=== PATIENT | male | born 2005 | race Caucasian/White ===

== ENCOUNTER 2025-08-14 13:13 | Emergency (ER) | payer OTHER, SELFPAY ==
[2025-08-14 13:14] VITALS: BP 124/78; PULSE 89; RESP 18; TEMP 35.8; O2SAT 100; BMI 30.5
--- NOTE | 2025-08-14 13:24 | EX.ED.UPPERE ---
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 He states that he now has a foreign body sensation in his hand. He thinks a splinter approximately an inch and a half long. In his hand. He sustained a left small laceration to the thenar eminence of his right hand. He denies other injuries. He is unsure of his last tetanus immunization but states that it has been over 10 years ago. He presents for splinter removal. PFSH PFSH Home Medications ?Medication ?Instructions ?Recorded ?Last Taken ?Type amoxicillin 875 mg-potassium 1 tab PO BID #14 tabs 08/14/25 Unknown Rx clavulanate 125 mg tablet hydrocodone-acetaminophen 5-325mg 1 tab PO Q6H PRN pain 3 days #12 08/14/25 Unknown Rx 5mg-325mg tabs Allergy/AdvReac Type Severity Reaction Status Date / Time No Known Allergies Allergy Verified 08/14/25 13:14 Social History Smoking Status: Never smoker ROS ROS ED ROS Narrative Review of systems is positive for splinter/foreign body, wooden in palm of right hand. EXAM Physical Exam Narrative Exam Narrative: GCS 15. ABCs intact. Inspection of the right hand does show very superficial laceration in the thenar eminence of his right hand. He is able to oppose his thumb. There is a palpable foreign body that is linear that is more distal to the wound. No active bleeding. Const Vital Signs: 08/14/25 13:14 08/14/25 13:19 Temperature 96.5 F L Temperature Source Temporal Pulse Rate 89 Respiratory Rate 18 Respiratory Effort Normal Non-Labored Respiratory Pattern Normal Blood Pressure 124/78 H Blood Pressure Mean 93 Pulse Ox 100 Oxygen Delivery Method Room Air MDM MDM MDM Narrative Medical decision making narrative: No feel differential diagnosis is applicable in this case is a foreign body in the soft tissue. His Tdap immunization was updated. I will obtain x-rays of the right hand to show the location of this probable radiopaque foreign body. I discussed with him the possibility that I may not be able to extract the splinter as it is deeper in the wound. X-ray obtained of the right hand shows no acute process, no definitive radiopaque foreign body. I discussed patient with Dr. Hermosillo, who agrees with attempt at removal, but patient may require outpatient follow-up and removal in the OR. Consent was obtained for extending the incision slightly and attempt to remove the wooden splinter. Lidocaine 1% was used as a local anesthetic. #10 scalpel was used for further incision. Area was probed with hemostats, and with forceps of attempted removal, but patient did not tolerate this well. He still has a retained foreign body. They were informed of the chance of infection and wound healing. His wound was dressed, and he was placed in a thumb spica splint. He was given a dose of Keflex here in the emergency department as well as 1 [place] tablet. For prophylaxis, he will be put on Augmentin for a week and given 12 tablets of [place]. He was referred to both Dr. Hermosillo who is on-call for orthopedics as well as Dr. Ervin with plastic surgery/hand. They are to follow-up by calling the office on Saturday, 2 days from now. Return instructions to the emergency department were reviewed. Disposition is discharged home in stable condition. Clinical impression: 1. Splinter of right hand 2. Retained foreign body History & Record Review Discussion w/independent historian: Patient and Family Discharge Plan Triage Chief Complaint: Foreign Body ED Provider: John Ivy Dx/Rx/DC Orders Clinical Impression: Splinter of right hand, Retained foreign body Instructions: ED Foreign Body Soft Tissue Prescriptions: New hydrocodone-acetaminophen 5-325 mg tablet 1 tab PO Q6H PRN (Reason: pain) 3 Days Qty: 12 0RF amoxicillin-pot clavulanate 875-125 mg tablet 1 tab PO BID Qty: 14 0RF Primary Care Provider: Radha Paiz Referrals: Demario Quezada DO [Non-Staff, Pediatrics] Seng Hermosillo DO [Med Staff - Active Staff, Orthopedics] - 2 Days for wound check Ken Ervin MD [Med Staff - Active Staff, Plastic Surgery] - 2 Days for wound check Activity Restrictions/Additional Instructions: Antibiotics as directed. Wear a splint. Follow-up with orthopedics or plastics/hand for splinter removal. Return with fever, drainage of pus from wound, new or worsening symptoms. Print Language: Belarusian Disposition Disposition: Home, Self Care
--- NOTE | 2025-08-14 13:35 | RAD_ITS ---
PROCEDURE: HAND MIN 3 VIEWS 08/14/2025 REASON FOR EXAM: TRAUMA, FOREIGN BODY TECHNIQUE: Procedure Code: WILNER Modality: DX Procedure: HAND MIN 3 VIEWS Laterality: Right COMPARISON: None. FINDINGS: Bones: No acute bony abnormalities. Joints: Unremarkable. Soft tissues: No soft tissue abnormalities. Other: No radiopaque foreign body. RAD/Hand Min 3 Views IMPRESSION: No acute findings. Reading Location: [id number]
[2025-08-14] MEDS: Lidocaine 1% (20 ml mdv) 20 ML Vial INFILT (14:08)
[2025-08-14] MEDS: HYDROcodone Bitartrate/Apap 5/325 Tablet PO (14:54)
[2025-08-14 15:13] VITALS: BP 126/73; PULSE 81; RESP 16; O2SAT 99
[2025-08-14 15:19] VITALS: BP 126/73; PULSE 81; RESP 16; TEMP 36.6; O2SAT 99
== END 2025-08-14 16:06 | disposition home or self-care (01) ==
PROVIDERS: Emergency Provider Emergency Medicine; PCP Nurse Practitioner Family; Visit Provider Emergency Medicine
DX: L92.3 Foreign body granuloma of the skin and subcutaneous tissue (principal); Z18.33 Retained wood fragments; Z23 Encounter for immunization
CPT/HCPCS: 10120; 73130; 90715; 99284

== ENCOUNTER → 2025-08-17 | Outpatient (CLI) | payer SELFPAY ==
--- OUTSIDE RECORDS SUMMARY | 2025-08-17 16:54 | XMS RPT_ITS | CCD ---
Author Organization [facility] Care Team Providers Care Guncotton Packer Name Role Phone Alesia BROWN MD Unavailable [phone] John Ivy Attending Unavailable Radha Paiz Primary Care Unavailable Allergies Allergy Classification Reported Allergen(s) Allergy Type Date of Onset Reaction(s) Facility (2 sources) Amoxicillin Drug Allergy [facility] Problems Active Problems Problem Classification Problem Date Documented Da te Episodic/Chronic Superficial injury; contusion (1 source) Superficial foreign body of right hand, initial encounter; Translations: [Superficial foreign body of right hand, initial encounter] Onset: 08-14-2025 Episodic Past or Other Problems Problem Classification Problem Date Documented Da te Episodic/Chronic NEGATED: Highlighted row has been ruled out!Unclassified (2 sources) No Problem Information Available Results Test Name Value Interpretation Reference Range [facility] Emergency Department Summary on 08-14-2025 Emergency Department Summary [facility] Medical Records Department [address] [place] [address] Emergency Department Summary 08/14/25 MR#: [id number] Acct: [id number] Name: NOAH BOOKER Rep #: [id number] : 2005 20 From: John Ivy MD PCP: Radha Paiz NP-C Status:REG ER Location: ED HPI History of Present Illness Chief Complaint: Foreign Body Narrative Narrative: 20-year-old male, [id number], states he was working in the [employer]/[place]ing when he went to jump off the wagon and scraped his right hand on the volar aspect along the wood portion of the wagon. He states that he now has a foreign body sensation in his hand. He thinks a splinter approximately an inch and a half long. In his hand. He sustained a left small laceration to the thenar eminence of his right hand. He denies other injuries. He is unsure of his last tetanus immunization but states that it has been over 10 years ago. He presents for splinter removal. PFSH PFSH Home Medications ???Medication ???Instructions ???Recorded ???Last Taken ???Type amoxicillin 875 mg-potassium 1 tab PO BID #14 tabs 08/14/25 Unk nown Rx clavulanate 125 mg tablet hydrocodone-acetamin ophen 5-325mg 1 tab PO Q6H PRN pain 3 days #12 08/14/25 Unknown Rx 5mg-325mg tabs Allergy/AdvReac Type Severity Reaction Status Date / Time No Known Allergies Allergy Verified 08/14/25 13:14 Social History Smoking Status: Never smoker ROS ROS ED ROS Narrative Review of systems is positive for splinter/foreign body, wooden in palm of right hand. EXAM Physical Exam Narrative Exam Narrative: GCS 15. ABCs intact. Inspection of the right hand does show very superficial laceration in the thenar eminence of his right hand. He is able to oppose his thumb. There is a palpable foreign body that is linear that is more distal to the wound. No active bleeding. Const Vital Signs: 08/14/25 13:14 08/14/25 13:19 Temperature 96.5 F L Temperature Source Temporal Pulse Rate 89 Respiratory Rate 18 Respiratory Effort Normal Non-Labored Respiratory Pattern Normal Blood Pressure 124/78 H Blood Pressure Mean 93 Pulse Ox 100 Oxygen Delivery Method Room Air MDM MDM MDM Narrative Medical decision making narrative: No feel differential diagnosis is applicable in this case is a foreign body in the soft tissue. His Tdap immunization was updated. I will obtain x-rays of the right hand to show the location of this probable radiopaque foreign body. I discussed with him the possibility that I may not be able to extract the splinter as it is deeper in the wound. X-ray obtained of the right hand shows no acute process, no definitive radiopaque foreign body. I discussed patient with Dr. Hermosillo, who agrees with attempt at removal, but patient may require outpatient follow-up and removal in the OR. Consent was obtained for extending the incision slightly and attempt to remove the wooden splinter. Lidocaine 1% was used as a local anesthetic. #10 scalpel was used for further incision. Area was probed with hemostats, and with forceps of attempted removal, but patient did not tolerate this well. He still has a retained foreign body. They were informed of the chance of infection and wound healing. His wound was dressed, and he was placed in a thumb spica splint. He was given a dose of Keflex here in the emergency department as well as 1 [place] tablet. For prophylaxis, he will be put on Augmentin for a week and given 12 tablets of [place]. He was referred to both Dr. Hermosillo who is on-call for orthopedics as well as Dr. Ervin with plastic surgery/hand. They are to follow-up by calling the office on Saturday, 2 days from now. Return instructions to the emergency department were reviewed. Disposition is discharged home in stable condition. Clinical impression: 1. Splinter of right hand 2. Retained foreign body History Record Review Discussion w/independent historian: Patient and Family Discharge Plan Triage Chief Complaint: Foreign Body ED Provider: John Ivy Dx/Rx/DC Orders Clinical Impression: Splinter of right hand, Retained foreign body Instructions: ED Foreign Body Soft Tissue Prescriptions: New hydrocodone-acetamin ophen 5-325 mg tablet 1 tab PO Q6H PRN (Reason: pain) 3 Days Qty: 12 0RF amoxicillin-pot clavulanate 875-125 mg tablet 1 tab PO BID Qty: 14 0RF Primary Care Provider: Radha Paiz Referrals: Demario Quezada DO [Non-Staff, Pediatrics] Seng Hermosillo DO [Med Staff - Active Staff, Orthopedics] - 2 Days for wound check Ken Ervin MD [Med Staff - Active Staff, Plastic Surgery] - 2 Days for wound check Activity Restrictions/Additio nal Instructions: Antibiotics as directed. Wear a splint. Follow-up with ort (more content not included)... Normal [facility] Hand Min 3 Viewson 5 Hand Min 3 Views [facility] Imaging Services [address] [place], [place] [id number] Hand Min 3 Views MR#: [id number] Acct: [id number] Name: NOAH BOOKER Rep #: [id number] : 2005 M 20 From: Elizabeth Jin MD PCP: HARLAN King Status: REG ER Study: Hand Min 3 Views Date of Exam: 08/14/25 Exam# [id number] Ordering Dr: John Ivy MD PROCEDURE: HAND MIN 3 VIEWS 08/14/2025 REASON FOR EXAM: TRAUMA, FOREIGN BODY TECHNIQUE: Procedure Code: WILNER Modality: DX Procedure: HAND MIN 3 VIEWS Laterality: Right COMPARISON: None. FINDINGS: Bones: No acute bony abnormalities. Joints: Unremarkable. Soft tissues: No soft tissue abnormalities. Other: No radiopaque foreign body. RAD/Hand Min 3 Views IMPRESSION: No acute findings. Reading Location: [facility] CC: HOOP PUNCH AND COILER OPERATOR HELPER-C Radha Paiz; Dr. John Ivy MD Child And Adolescent Psychiatrist: Signed Normal [facility] Encounters Encounter Date Encounter Type Care Provider Facility Start: 08-14-2025 End: 08-14-2025 Emergency department patient visit John Ivy Facility:[facility] Start: 12-22-2010 End: 12-22-2010 Historical Summary Alesia BROWN MD Work Phone: [place] [employer] Payers Date Payer Category Payer Self-pay [id number] 2025 Self-pay Unknown [id number] Social History Date Type Detail Facility Male [facility] [employer]; [employer] [facility] [employer] Work Phone: Tobacco smoking consumption unknown [employer]; [employer] [facility] [employer] Work Phone: NEGATED: Highlighted row No Social History Information Available No Social History Information Available [employer]; [employer] [facility] [employer] Work Phone: Summary Purpose Family History No Family History Records Found Advance Directives No Advanced Directives Records Found Additional Source Comments (unrecognized sect ion and content) No Status Records Found INFORMATION SOURCE (unrecogn ized section and content) DATE CREATED AUTHOR 08/15/2025 [facility] FOR RECORDS PERTAINING TO PATIENTS WHO ARE OR HAVE BEEN ENROLLED IN A CHEMICAL DEPENDENCY/SUBSTANCEABUSE PROGRAM, SOME INFORMATION MAY BE OMITTED. This clinical summary was aggregated from multiple sources. Caution should be exercised in using it in the provision of clinical care. This summary normalizes information from multiple sources, and as a consequence, information in this document may materially change the coding, format and clinical context of patient data. In addition, data may be omitted in some cases. CLINICAL DECISIONS SHOULD BE BASED ON THE PRIMARY CLINICAL RECORDS. [employer] provides no warranty or guarantee of the accuracy or completeness of information in this document.
--- OUTSIDE RECORDS SUMMARY | 2025-08-17 16:54 | XMS RPT_ITS | CCD ---
Author Organization [facility] Care Team Providers Care Chief Transfer And Pumphouse Operator Name Role Phone Alesia BROWN MD Unavailable John Ivy Attending Unavailable Radha Paiz Primary Care Unavailable Allergies Allergy Classification Reported Allergen(s) Allergy Type Date of Onset Reaction(s) Facility (2 sources) Amoxicillin Drug Allergy [facility] Problems Active Problems Problem Classification Problem Date [...] Results Test Name Value Interpretation Reference Range [facility] Emergency Department Summary on 08-14-2025 Emergency Department Summary [facility] Medical Records Department [address] [place] [address] Emergency Department Summary 08/14/25 MR#: [id number] Acct: [id number] Name: NOAH BOOKER Rep #: [id number] : 2005 20 From: John Ivy MD PCP: Radha Paiz NP-C Status:REG ER Location: ED HPI History of Present Illness Chief Complaint: Foreign Body Narrative Narrative: 20-year-old male, [id number], 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 For prophylaxis, he will be put on Augmentin for a week and given 12 tablets of [place]. He was referred to both Dr. Hermosillo [...] with ort (more content not included)... Normal [facility] Hand Min 3 Viewson 5 Hand Min 3 Views [facility] Imaging Services [address] [place], [place] [id number] Hand Min 3 Views MR#: [id number] Acct: [id number] Name: NOAH BOOKER Rep #: [id number] : 2005 M 20 From: Elizabeth Jin MD PCP: HARLAN King Status: REG ER Study: Hand Min 3 Views Date of Exam: 08/14/25 Exam# [id number] Ordering Dr: John Ivy MD PROCEDURE: HAND MIN 3 VIEWS 08/14/2025 REASON FOR EXAM: TRAUMA, FOREIGN BODY TECHNIQUE: Procedure Code: WILNER Modality: DX Procedure: HAND MIN 3 VIEWS Laterality: Right COMPARISON: None. FINDINGS: Bones: No acute bony abnormalities. Joints: Unremarkable. Soft tissues: No soft tissue abnormalities. Other: No radiopaque foreign body. RAD/Hand Min 3 Views IMPRESSION: No acute findings. Reading Location: [facility] CC: CONTACT CENTER ANALYST-C Radha Paiz; Dr. John Ivy MD Appeals Manager: Signed Normal [facility] Encounters Encounter Date Encounter Type Care Provider Facility Start: 08-14-2025 End: 08-14-2025 Emergency department patient visit John Ivy Facility:[facility] Start: 12-22-2010 End: 12-22-2010 Historical Summary Alesia BROWN MD Work Phone: [employer] Payers Date Payer Category Payer Self-pay [id number] 2025 Self-pay Unknown [id number] Social History Date Type Detail Facility Male [facility] [employer]; [employer] [facility] [employer] Work Phone: Tobacco smoking consumption unknown [employer]; [employer] [facility] [employer] Work Phone: NEGATED: Highlighted row No Social History Information Available No Social History Information Available [employer]; [employer] [facility] [employer] Work Phone: Summary Purpose Family History No Family History Records Found Advance Directives No Advanced Directives Records Found Additional Source Comments (unrecognized sect ion and content) No Status Records Found INFORMATION SOURCE (unrecogn ized section and content) DATE CREATED AUTHOR 08/15/2025 [facility] FOR RECORDS PERTAINING TO PATIENTS WHO ARE [...] BE BASED ON THE PRIMARY CLINICAL RECORDS. [employer] provides no warranty or guarantee of the accuracy or completeness of information in this document.
== END | disposition home or self-care (01) ==
LOC: LABSPEC 16:33
PROVIDERS: PCP Nurse Practitioner Family; Referring Provider Physician Assistant Surgical; Visit Provider Physician Assistant Surgical
DX: S61.021A Laceration with foreign body of right thumb without damage to nail, initial encounter (principal)
CPT/HCPCS: 87070; 87075; 87205